=== PATIENT | male | born 1990 | race African-American/Black ===

== ENCOUNTER 2024-08-13 04:09 | Day surgery (SDC) | payer OTHER ==
[2024-08-12 10:46] VITALS: BMI 27.0
[2024-08-13] MEDS ORDERED: ROCURONIUM BROMIDE 50 MG/5 ML SYRINGE ONE ×2 (11:18→12:12)
[2024-08-13] MEDS ORDERED: PROPOFOL 20 ML ONE ×2 (11:18→11:19)
[2024-08-13] MEDS ORDERED: MIDAZOLAM HCL 2 MG/2 ML SINGLE DOSE VIAL ONE ×2 (11:19→11:26)
[2024-08-13] MEDS ORDERED: BUPIVACAINE HCL/PF 0.25% (2.5MG/ML) 10 ML VIAL ONE (11:20)
[2024-08-13] MEDS ORDERED: ceFAZolin SODIUM 1 GM VIAL ONE (12:09)
[2024-08-13] MEDS: ceFAZolin SODIUM 1 GM VIAL IVPB ONE (12:15)
[2024-08-13] MEDS ORDERED: HYDROmorphone HCl 2 MG/ML VIAL ONE (12:18)
[2024-08-13] MEDS: BUPIVACAINE HCL/PF 0.25% (2.5MG/ML) 10 ML VIAL IJ ONE (12:18)
[2024-08-13] MEDS ORDERED: CEFAZOLIN SODIUM 2 GM in DEXTROSE 5%-WATER 100 ML IVPB ONE (13:00)
[2024-08-13] MEDS ORDERED: SUGAMMADEX SODIUM 200 MG/2 ML VIAL ONE ×2 (13:30→13:36)
[2024-08-13] MEDS ORDERED: oxyCODONE HCL 5 MG TABLET PO PRN ×2 (14:41)
[2024-08-13] MEDS ORDERED: ONDANSETRON 4 MG/2 ML VIAL IVPUSH PRN (14:41)
[2024-08-13] MEDS ORDERED: LACTATED RINGERS SOLUTION 1,000 ML IV SCH (14:45)
[2024-08-13 17:47] VITALS: BP 140/89; PULSE 88; RESP 20; TEMP 97.8
== END 2024-08-13 17:35 | disposition home or self-care (01) ==
LOC: JASU-SURG 04:09
PROVIDERS: ATTEND Surgery
PROC: 8E0W4CZ Robotic Assisted Procedure of Trunk Region, Percutaneous Endoscopic Approach (ICD-10-PCS; 2024-08-13)
PROC: 0YU54JZ Supplement Right Inguinal Region with Synthetic Substitute, Percutaneous Endoscopic Approach (ICD-10-PCS; principal; 2024-08-13 10:30)
DX: K40.90 Unilateral inguinal hernia, without obstruction or gangrene, not specified as recurrent (principal)
CPT/HCPCS: 49650; S2900; 86850; 86900; 86901; 94760; C1781